=== PATIENT | female | born 1995 | race Caucasian/White ===

== ENCOUNTER 2017-09-28 16:36 | Emergency (ER) | payer BC ==
--- NOTE | 2017-09-28 17:49 | EDM.PDOC ---
ED HPI GENERAL MEDICAL PROBLEM - General Chief Complaint: Syncope Stated Complaint: PASSING OUT Time Seen by Provider: 09/28/17 17:08 Source of Information: Reports: Patient History Limitations: Reports: No Limitations - History of Present Illness INITIAL COMMENTS - FREE TEXT/NARRATIVE: 22-year-old female presents for evaluation and treatment following a near syncopal episode. 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 She was working out tonight. Was doing a strenuous workout. She states that she became lightheaded and noticed that her vision was darkening. She states that she felt like she was going to pass out. She sat down and drank some water and her symptoms resolved. Reportedly this is in the third episode of syncope or near syncope within the last few months. Patient was first seen in June by family medicine following a syncopal event. During that time she was working outside. She had labs including a TSH, d-dimer, ESR, CBC and CMP. No abnormalities were identified. She was not orthostatic. She had a normal EKG and Holter monitor. Patient reports last week she had a second syncopal episode. During this event she was in the shower. She was seen by family medicine again. CBC and CMP were unremarkable. She was scheduled with cardiology. Currently has a cardiology appointment in October. Patient reports she currently feels cold, weak and fatigued. She denies any current chest pain, lightheadedness or dizziness. She denies any polyuria or polydipsia. Reports that she has had chest pains "now and then". Describes it as a stabbing pain lasting maybe 5 minutes. No nausea or vomiting associated with these chest pains. Reports some shortness of breath with the chest pains but none currently. Additionally, she denies any unintentional weight loss or weight gain. States she has been more fatigued than normal. Reports that she just finished her menstrual cycle. She is not currently on any medications. Was on oral contraceptive pills but stopped these in May. She does use an inhaler for exercise-induced asthma but states she hardly ever uses this. - Related Data Allergies Allergy/AdvReac Type Severity Reaction Status Date / Time Penicillins Allergy Rash Verified 09/28/17 16:59 Home Meds: Home Meds . [No Known Home Meds] 09/28/17 [History] Past Medical History Cardiovascular History: Reports: Syncope - Past Surgical History Musculoskeletal Surgical History: Reports: Arthroscopic Knee, Other (See Below) Social & Family History - Tobacco Use Second Hand Smoke Exposure: No ED ROS GENERAL - Review of Systems Review Of Systems: See Below Constitutional: Reports: Weakness, Fatigue. Denies: Fever, Weight Loss, Weight Gain Cardiovascular: Reports: Chest Pain ("now and then") Endocrine: Reports: Fatigue. Denies: Polydypsia, Polyuria GI/Abdominal: Denies: Abdominal Pain, Vomiting : Reports: No Symptoms Neurological: Reports: Syncope (reports a near syncopal episode tonight; 2 syncopal episodes within the last few months). Denies: Headache - Physical Exam Exam: See Below Exam Limited By: No Limitations General Appearance: Alert, WD/WN, No Apparent Distress Eye Exam: Bilateral Eye: PERRL Ears: Normal External Exam, Normal Canal, Hearing Grossly Normal, Normal TMs Nose: Normal Inspection Throat/Mouth: Normal Inspection, Normal Lips, Normal Voice, No Airway Compromise Head Exam: Atraumatic, Normocephalic Neck: Normal Inspection, Non-Tender, Full Range of Motion Respiratory/Chest: No Respiratory Distress, Lungs Clear Cardiovascular: Normal Peripheral Pulses, Regular Rate, Rhythm, No Murmur GI/Abdominal: Soft, Non-Tender Neuro Exam (Abbreviated): Alert, Oriented, Normal Cognition Psychiatric: Normal Affect, Normal Mood Skin Exam: Warm, Dry, Normal Color Course - Vital Signs Last Recorded V/S: Last Vital Signs Temp 36.8 C 09/28/17 16:52 Pulse 78 09/28/17 16:52 Resp 20 09/28/17 16:52 BP 111/68 09/28/17 16:52 Pulse Ox 100 09/28/17 16:52 Orthostatic Blood Pressure [ 107/73 Standing] Orthostatic Blood Pressure [ 100/65 Sitting] Orthostatic Blood Pressure [ 108/66 Supine] - Orders/Labs/Meds Orders: Active Orders 24 hr Category Date Time Status Orthostatic Vital Signs [RC] ASDIRECTED Care 09/28/17 17:31 Active Chest 2V [CR] Stat Exams 09/28/17 17:32 Ordered Labs: Laboratory Tests 09/28/17 09/28/17 09/28/17 Range/Units 17:44 17:45 17:45 WBC 14.57 H (3.98-10.04) K/mm3 RBC 4.35 (3.98-5.22) M/mm3 Hgb 13.1 (11.2-15.7) gm/L Hct 38.9 (34.1-44.9) % MCV 89.4 (79.4-94.8) fl MCH 30.1 (25.6-32.2) pg MCHC 33.7 (32.2-35.5) g/dl RDW Std Deviation 41.1 (36.4-46.3) fL Plt Count 254 (182-369) K/mm3 MPV 10.4 (9.4-12.3) fl Neutrophils % (Manual) 77 H (40-60) % Band Neutrophils % 0 (0-10) % Lymphocytes % (Manual) 20 (20-40) % Atypical Lymphs % 0 % Monocytes % (Manual) 3 (2-10) % Eosinophils % (Manual) 0 L (0.7-5.8) % Basophils % (Manual) 0 L (0.1-1.2) Platelet Estimate Adequate RBC Morph Comment Normal Sodium 145 (136-145) mEq/L Potassium 4.3 (3.5-5.1) mEq/L Chloride 106 (98-107) mEq/L Carbon Dioxide 26 (21-32) mEq/L Anion Gap 17.3 H (5-15) BUN 18 (7-18) mg/dL Creatinine 1.0 (0.55-1.02) mg/dL Est Cr Clr Drug Dosing 77.49 mL/min Estimated GFR (MDRD) > 60 (>60) mL/min BUN/Creatinine Ratio 18.0 (14-18) Glucose 102 (74-106) mg/dL Calcium 9.2 (8.5-10.1) mg/dL Total Bilirubin 0.3 (0.2-1.0) mg/dL AST 22 (15-37) U/L ALT 25 (14-59) U/L Alkaline Phosphatase 64 (46-116) U/L Total Protein 7.3 (6.4-8.2) g/dl Albumin 4.1 (3.4-5.0) g/dl Globulin 3.2 gm/dL Albumin/Globulin Ratio 1.3 (1-2) HCG, Qual (NEGATIVE) Urine Color Yellow (Yellow) Urine Appearance Clear (Clear) Urine pH 6.0 (5.0-8.0) Ur Specific [place] > or = 1.030 (1.005-1.030) Urine Protein Trace H (Negative) Urine Glucose (UA) Negative (Negative) Urine Ketones Negative (Negative) Urine Occult Blood 2+ H (Negative) Urine Nitrite Negative (Negative) Urine Bilirubin Negative (Negative) Urine Urobilinogen 0.2 (0.2-1.0) Ur Leukocyte Esterase Negative (Negative) 09/28/17 Range/Units 17:45 WBC (3.98-10.04) K/mm3 RBC (3.98-5.22) M/mm3 Hgb (11.2-15.7) gm/L Hct (34.1-44.9) % MCV (79.4-94.8) fl MCH (25.6-32.2) pg MCHC (32.2-35.5) g/dl RDW Std Deviation (36.4-46.3) fL Plt Count (182-369) K/mm3 MPV (9.4-12.3) fl Neutrophils % (Manual) (40-60) % Band Neutrophils % (0-10) % Lymphocytes % (Manual) (20-40) % Atypical Lymphs % % Monocytes % (Manual) (2-10) % Eosinophils % (Manual) (0.7-5.8) % Basophils % (Manual) (0.1-1.2) Platelet Estimate RBC Morph Comment Sodium (136-145) mEq/L Potassium (3.5-5.1) mEq/L Chloride (98-107) mEq/L Carbon Dioxide (21-32) mEq/L Anion Gap (5-15) BUN (7-18) mg/dL Creatinine (0.55-1.02) mg/dL Est Cr Clr Drug Dosing mL/min Estimated GFR (MDRD) (>60) mL/min BUN/Creatinine Ratio (14-18) Glucose (74-106) mg/dL Calcium (8.5-10.1) mg/dL Total Bilirubin (0.2-1.0) mg/dL AST (15-37) U/L ALT (14-59) U/L Alkaline Phosphatase (46-116) U/L Total Protein (6.4-8.2) g/dl Albumin (3.4-5.0) g/dl Globulin gm/dL Albumin/Globulin Ratio (1-2) HCG, Qual Negative (NEGATIVE) Urine Color (Yellow) Urine Appearance (Clear) Urine pH (5.0-8.0) Ur Specific [place] (1.005-1.030) Urine Protein (Negative) Urine Glucose (UA) (Negative) Urine Ketones (Negative) Urine Occult Blood (Negative) Urine Nitrite (Negative) Urine Bilirubin (Negative) Urine Urobilinogen (0.2-1.0) Ur Leukocyte Esterase (Negative) - Radiology Interpretation Free Text/Narrative:: 2 view chest xray shows no acute intrathoracic process. No cardiomegaly. - Re-Assessments/Exams Free Text/Narrative Re-Assessment/Exam: 09/28/17 19:06 I reviewed the chest x-ray and lab results with the patient. I placed an outpatient order for her to have an echocardiogram. I will have her call tomorrow to get this scheduled. Follow-up with Dr. Cadet for results. Follow-up with cardiology as planned. Return to the ER if symptoms change or worsen. Departure - Departure Time of Disposition: 19:06 Disposition: Home, Self-Care 01 Condition: Good Clinical Impression: Syncope - Discharge Information Instructions: Syncope, [id number] Referrals: Lynda Cadet MD [Primary Care Provider] - Forms: ED Department Discharge Additional Instructions: Call tomorrow to schedule your echocardiogram. Please call [phone] if they do not contact you to schedule this. Ask for the radiology department. Follow-up with Dr. Cadet 2 to 3 days after your echocardiogram for results. Follow-up with cardiology this October as planned. make sure you are drinking plenty of fluids. Drink at least half your body weight in ounces every day. Make sure you are drink plenty of fluids before any physical activity. If you become lightheaded, dizzy, etc. stop what you are doing, sit down and drink fluids. Rest. Recommended reduced activity until at least after your echocardiogram. Please return to the ER if your symptoms change or worsen. - My Orders Last 24 Hours: My Active Orders 09/28/17 17:31 Orthostatic Vital Signs [RC] ASDIRECTED 09/28/17 17:32 Chest 2V [CR] Stat - Assessment/Plan Last 24 Hours: My Active Orders 09/28/17 17:31 Orthostatic Vital Signs [RC] ASDIRECTED 09/28/17 17:32 Chest 2V [CR] Stat
--- NOTE | 2017-09-29 09:46 | CR ---
Chest: Two views of the chest were obtained. Comparison: No prior chest x-ray. Heart size and mediastinum are within normal limits. Lungs are clear. Bony structures appear within normal limits for the patient's age. Impression: 1. Nothing acute is identified on two-view chest x-ray. Diagnostic code #1
== END 2017-09-28 19:21 | disposition home or self-care (01) ==
LOC: JD.ED 16:36
DX: R55 Syncope and collapse (principal); Z88.0 Allergy status to penicillin
CPT/HCPCS: 36415; 71020; 71020-26; 80053; 81003; 84703; 85025; 99284

== ENCOUNTER 2018-07-29 07:03 | Emergency (ER) | payer BC ==
[2018-07-29] MEDS ORDERED: Sodium Chloride 0.9% 10 ML Syringe FLUSH PRN (07:33)
[2018-07-29] MEDS ORDERED: Ondansetron 4 MG/2 ML SDV IVPUSH ONE (07:33)
[2018-07-29] MEDS ORDERED: HYDROmorphone 1 MG/ML Syringe IVPUSH ONE (07:34)
[2018-07-29] MEDS ORDERED: Ketorolac 30 MG/ML SDV IVPUSH ONE (07:34)
--- NOTE | 2018-07-29 07:39 | EDM.PDOC ---
ED HPI GENERAL MEDICAL PROBLEM - General Chief Complaint: Abdominal Pain Stated Complaint: VOMITING/ABDOMINAL PAIN Time Seen by Provider: 07/29/18 07:30 Source of Information: Reports: Patient, Family History Limitations: Reports: No Limitations - History of Present Illness INITIAL COMMENTS - FREE TEXT/NARRATIVE: The patient presents with right lower back/flank pain that radiates to the right lower abdomen. She has nausea and vomiting. She has no diarrhea. She thought maybe she initially had a bladder infection. She has no hematuria. She has no dysuria. She has no fever, chills cough, chest pain or shortness of breath. She does have a history of kidney stones. This started at 5am this morning. Onset: Sudden Duration: Hour(s): (5am) Quality: Reports: Sharp Severity: Severe Improves with: Reports: None Worsens with: Reports: None Associated Symptoms: Reports: Nausea/Vomiting. Denies: Chest Pain, Cough, Fever /Chills, Headaches, Shortness of Breath Right Back Pain Score (Numeric/FACES): 10 - Related Data Allergies Allergy/AdvReac Type Severity Reaction Status Date / Time Penicillins Allergy Rash Verified 07/29/18 07:19 Home Meds: Home Meds Hydrocodone/Acetaminophen [Hydrocodon-Acetaminophen 5-325] 1 - 2 each PO Q6HR PRN #20 tablet 07/29/18 [Rx] Sulfamethoxazole/Trimethoprim [Bactrim Ds Tablet] 1 each PO BID #10 tablet 07/29 [Rx] Tamsulosin HCl [Flomax] 0.4 mg PO DAILY #7 cap.er.24h 07/29/18 [Rx] Past Medical History Cardiovascular History: Reports: Syncope - Past Surgical History Musculoskeletal Surgical History: Reports: Arthroscopic Knee, Other (See Below) Social & Family History - Tobacco Use Smoking Status *Q: Never Smoker - Caffeine Use Caffeine Use: Reports: None - Recreational Drug Use Recreational Drug Use: No ED ROS GENERAL - Review of Systems Review Of Systems: See Below Constitutional: Reports: No Symptoms HEENT: Reports: No Symptoms Respiratory: Reports: No Symptoms Cardiovascular: Reports: No Symptoms Endocrine: Reports: No Symptoms GI/Abdominal: Reports: Abdominal Pain, Nausea, Vomiting. Denies: Diarrhea : Reports: Flank Pain. Denies: Dysuria, Hematuria Musculoskeletal: Reports: No Symptoms Skin: Reports: No Symptoms ED EXAM, RENAL/ - Physical Exam Exam: See Below Exam Limited By: No Limitations General Appearance: Alert, Moderate Distress Ears: Normal External Exam Nose: Normal Inspection Head: Atraumatic, Normocephalic Neck: Normal Inspection Respiratory/Chest: No Respiratory Distress, Lungs Clear, Normal Breath Sounds Cardiovascular: Regular Rate, Rhythm, No Edema, No Murmur GI/Abdominal: Soft, Non-Tender, No Organomegaly, No Mass Back Exam: No: CVA Tenderness (R) Extremities: Normal Inspection Neurological: Alert, Oriented, No Motor/Sensory Deficits Course - Vital Signs Last Recorded V/S: Last Vital Signs Temp 99.3 F 07/29/18 07:15 Pulse 90 07/29/18 07:15 Resp 13 07/29/18 07:15 BP 101/86 07/29/18 07:15 Pulse Ox 100 07/29/18 07:15 - Orders/Labs/Meds Orders: Active Orders 24 hr Category Date Time Status Peripheral IV Care [RC] . DIRECTED Care 07/29/18 07:34 Active Sodium Chloride 0.9% [Normal Saline] 1,000 ml Med 07/29/18 07:45 Active IV ASDIRECTED Sodium Chloride 0.9% [Saline Flush] Med 07/29/18 07:33 Active 10 ml FLUSH ASDIRECTED PRN ED Antiemetic Medication Reflex [OM.PC] Stat Oth 07/29/18 07:33 Ordered Peripheral IV Insertion Adult [OM.PC] Stat Oth 07/29/18 07:33 Ordered Medication Orders Sodium Chloride (Normal Saline) 1,000 mls @ 125 mls/hr IV ASDIRECTED VANESA Last Admin: 07/29/18 07:41 Dose: 125 mls/hr Sodium Chloride (Saline Flush) 10 ml FLUSH ASDIRECTED PRN PRN Reason: Keep Vein Open Last Admin: 07/29/18 07:41 Dose: 10 ml Labs: Laboratory Tests 07/29/18 07/29/18 07/29/18 Range/Units 07:25 07:40 07:40 WBC (3.98-10.04) K/mm3 RBC (3.98-5.22) M/mm3 Hgb (11.2-15.7) gm/L Hct (34.1-44.9) % MCV (79.4-94.8) fl MCH (25.6-32.2) pg MCHC (32.2-35.5) g/dl RDW Std Deviation (36.4-46.3) fL Plt Count (182-369) K/mm3 MPV (9.4-12.3) fl Neut % (Auto) (34.0-71.1) % Lymph % (Auto) (19.3-51.7) % [place] % (Auto) (4.7-12.5) % Eos % (Auto) (0.7-5.8) Baso % (Auto) (0.1-1.2) % Neut # (Auto) (1.56-6.13) K/mm3 Lymph # (Auto) (1.18-3.74) K/mm3 [place] # (Auto) (0.24-0.36) K/mm3 Eos # (Auto) (0.04-0.36) K/mm3 Baso # (Auto) (0.01-0.08) K/mm3 Sodium 140 (136-145) mEq/L Potassium 3.4 L (3.5-5.1) mEq/L Chloride 107 (98-107) mEq/L Carbon Dioxide 21 (21-32) mEq/L Anion Gap 15.4 H (5-15) BUN 18 (7-18) mg/dL Creatinine 1.1 H (0.55-1.02) mg/dL Est Cr Clr Drug Dosing 69.86 mL/min Estimated GFR (MDRD) > 60 (>60) mL/min BUN/Creatinine Ratio 16.4 (14-18) Glucose 106 (74-106) mg/dL Calcium 8.9 (8.5-10.1) mg/dL Total Bilirubin 0.5 (0.2-1.0) mg/dL AST 31 (15-37) U/L ALT 26 (14-59) U/L Alkaline Phosphatase 63 (46-116) U/L Total Protein 7.3 (6.4-8.2) g/dl Albumin 4.0 (3.4-5.0) g/dl Globulin 3.3 gm/dL Albumin/Globulin Ratio 1.2 (1-2) Lipase 139 (73-393) U/L HCG, Qual Negative (NEGATIVE) Urine Color Yellow (Yellow) Urine Appearance Clear (Clear) Urine pH 6.0 (5.0-8.0) Ur Specific [place] 1.025 (1.005-1.030) Urine Protein Negative (Negative) Urine Glucose (UA) Negative (Negative) Urine Ketones Negative (Negative) Urine Occult Blood 2+ H (Negative) Urine Nitrite Negative (Negative) Urine Bilirubin Negative (Negative) Urine Urobilinogen 0.2 (0.2-1.0) Ur Leukocyte Esterase 2+ H (Negative) Urine RBC 5-10 H (0-5) /hpf Urine WBC 10-20 H (0-5) /hpf Ur Epithelial Cells 0-5 (0-5) /hpf Urine Bacteria Many H (FEW) /hpf Urine Mucus Few (FEW) /hpf 07/29/18 Range/Units 07:55 WBC 7.35 (3.98-10.04) K/mm3 RBC 4.05 (3.98-5.22) M/mm3 Hgb 12.2 (11.2-15.7) gm/L Hct 36.6 (34.1-44.9) % MCV 90.4 (79.4-94.8) fl MCH 30.1 (25.6-32.2) pg MCHC 33.3 (32.2-35.5) g/dl RDW Std Deviation 41.5 (36.4-46.3) fL Plt Count 206 (182-369) K/mm3 MPV 9.9 (9.4-12.3) fl Neut % (Auto) 59.0 (34.0-71.1) % Lymph % (Auto) 32.5 (19.3-51.7) % [place] % (Auto) 7.2 (4.7-12.5) % Eos % (Auto) 0.8 (0.7-5.8) Baso % (Auto) 0.4 (0.1-1.2) % Neut # (Auto) 4.33 (1.56-6.13) K/mm3 Lymph # (Auto) 2.39 (1.18-3.74) K/mm3 [place] # (Auto) 0.53 H (0.24-0.36) K/mm3 Eos # (Auto) 0.06 (0.04-0.36) K/mm3 Baso # (Auto) 0.03 (0.01-0.08) K/mm3 Sodium (136-145) mEq/L Potassium (3.5-5.1) mEq/L Chloride (98-107) mEq/L Carbon Dioxide (21-32) mEq/L Anion Gap (5-15) BUN (7-18) mg/dL Creatinine (0.55-1.02) mg/dL Est Cr Clr Drug Dosing mL/min Estimated GFR (MDRD) (>60) mL/min BUN/Creatinine Ratio (14-18) Glucose (74-106) mg/dL Calcium (8.5-10.1) mg/dL Total Bilirubin (0.2-1.0) mg/dL AST (15-37) U/L ALT (14-59) U/L Alkaline Phosphatase (46-116) U/L Total Protein (6.4-8.2) g/dl Albumin (3.4-5.0) g/dl Globulin gm/dL Albumin/Globulin Ratio (1-2) Lipase (73-393) U/L HCG, Qual (NEGATIVE) Urine Color (Yellow) Urine Appearance (Clear) Urine pH (5.0-8.0) Ur Specific [place] (1.005-1.030) Urine Protein (Negative) Urine Glucose (UA) (Negative) Urine Ketones (Negative) Urine Occult Blood (Negative) Urine Nitrite (Negative) Urine Bilirubin (Negative) Urine Urobilinogen (0.2-1.0) Ur Leukocyte Esterase (Negative) Urine RBC (0-5) /hpf Urine WBC (0-5) /hpf Ur Epithelial Cells (0-5) /hpf Urine Bacteria (FEW) /hpf Urine Mucus (FEW) /hpf Meds: Medications Generic Name Dose Route Start Last Admin Trade Name Freq PRN Reason Stop Dose Admin Sodium Chloride 1,000 mls @ 125 mls/hr 07/29/18 07:45 07/29/18 07:41 Normal Saline IV 125 mls/hr ASDIRECTED VANESA Administration Sodium Chloride 10 ml 07/29/18 07:33 07/29/18 07:41 Saline Flush FLUSH 10 ml ASDIRECTED PRN Administration Keep Vein Open Discontinued Medications Generic Name Dose Route Start Last Admin Trade Name Freq PRN Reason Stop Dose Admin Hydromorphone HCl 1 mg 07/29/18 07:34 07/29/18 07:41 Dilaudid IVPUSH 07/29/18 07:35 1 mg ONETIME ONE Administration Hydromorphone HCl 0.5 mg 07/29/18 10:31 Dilaudid IVPUSH 07/29/18 10:32 ONETIME ONE Ketorolac Tromethamine 30 mg 07/29/18 07:34 07/29/18 07:40 Toradol IVPUSH 07/29/18 07:35 30 mg ONETIME ONE Administration Ondansetron HCl 4 mg 07/29/18 07:33 07/29/18 07:41 Zofran IVPUSH 07/29/18 07:34 4 mg ONETIME ONE Administration - Re-Assessments/Exams Free Text/Narrative Re-Assessment/Exam: 07/29/18 07:38 I ordered an IV NS at 125mL/hr, zofran 4mg IV, toradol 30mg IV, dilaudid 1mg IV , UA, labs and a CT of her abdomen and pelvis without contrast to look for a kidney stone. 07/29/18 10:33 Her CBC looks good. Her K was a little low at 3.4. Her anion gap was elevated at 15.4. Her creatinine was slightly elevated at 1.1. Her lipase was negative. Her HCG was negative. Her UA shows a UTI and RBC's. I will need to treat her for that UTI. Her CT shows a 4mm obstructing stone within the distal right ureter at the UVJ. Multiple small nonobstructing calculi within both kidneys. 3.9 cm cyst within the right ovary. Small amount of fluid within the cul-de-sac which is believed to be physiologic. She feels better but her pain is coming back so I ordered more dilaudid 0.5mg IV before she goes. Departure - Departure Time of Disposition: 10:40 Disposition: Home, Self-Care 01 Condition: Good Clinical Impression: Kidney stone on right side, Ureteral calculi, Ureteral colic Ovarian cyst Qualifiers: Laterality: right Qualified Code(s): N83.201 - Unspecified ovarian cyst, right side UTI (urinary tract infection) Qualifiers: Urinary tract infection type: site unspecified Hematuria presence: with hematuria Qualified Code(s): N39.0 - Urinary tract infection, site not specified ; R31.9 - Hematuria, unspecified - Discharge Information *PRESCRIPTION DRUG MONITORING PROGRAM REVIEWED*: No *COPY OF PRESCRIPTION DRUG MONITORING REPORT IN PATIENT CARLA: No Prescriptions: Hydrocodone/Acetaminophen [Hydrocodon-Acetaminophen 5-325] 1 - 2 each PO Q6HR PRN #20 tablet PRN Reason: Pain Sulfamethoxazole/Trimethoprim [Bactrim Ds Tablet] 1 each PO BID #10 tablet Tamsulosin HCl [Flomax] 0.4 mg PO DAILY #7 cap.er.24h Referrals: Mckinley Lorenzo MD [Physician] - 1 Week Lynda Cadet MD [Primary Care Provider] - 1 Week Forms: ED Department Discharge Additional Instructions: Drink plenty of fluid. Take the macrobid 2 times per day for 5 days. Take flomax daily for a week. Take hydrocodone 5mg/325mg 1 to 2 pills every 6 hours as needed for pain. Follow up with Dr Cadet and Dr Lorenzo or one of his partners. He is the urologist in [place]. Please return if you are worse. - My Orders Last 24 Hours: My Active Orders 07/29/18 07:33 Sodium Chloride 0.9% [Saline Flush] 10 ml FLUSH ASDIRECTED PRN ED Antiemetic Medication Reflex [OM.PC] Stat Peripheral IV Insertion Adult [OM.PC] Stat 07/29/18 07:34 Peripheral IV Care [RC] . DIRECTED 07/29/18 07:45 Sodium Chloride 0.9% [Normal Saline] 1,000 ml IV ASDIRECTED - Assessment/Plan Last 24 Hours: My Active Orders 07/29/18 07:33 Sodium Chloride 0.9% [Saline Flush] 10 ml FLUSH ASDIRECTED PRN ED Antiemetic Medication Reflex [OM.PC] Stat Peripheral IV Insertion Adult [OM.PC] Stat 07/29/18 07:34 Peripheral IV Care [RC] . DIRECTED 07/29/18 07:45 Sodium Chloride 0.9% [Normal Saline] 1,000 ml IV ASDIRECTED
[2018-07-29] MEDS ORDERED: Sodium Chloride 0.9% 1,000 ML IV SCH (07:45)
--- NOTE | 2018-07-29 10:08 | CT ---
CT abdomen and pelvis Technique: Multiple axial sections were obtained from above the dome of the diaphragm inferiorly to the pubic symphysis. Intravenous and oral contrast was not utilized. Study has been performed as a ureteral stone protocol. Comparison: Prior noncontrast CT study of 08/24/14. Findings: Multiple small nonobstructing calculi are seen within both kidneys. These calculi measure less than 5 mm. Right ureter is prominent in size. This finding is due to an obstructing stone located at the UVJ measuring 4 mm. No other abnormal calcifications are seen along the course of the ureters. Visualized lung bases are clear. Noncontrast appearance of the liver and spleen appears within normal limits. Adrenal glands show no nodule. No discrete abnormality is appreciated within the pancreas. Gallbladder contains no calcified gallstones. Aorta shows no aneurysmal dilatation. No retroperitoneal adenopathy or mesenteric abnormalities are seen. No pelvic mass is identified. Cyst is identified within the right ovary measuring about 3.9 cm in size. Small amount of fluid is seen within the cul-de-sac which is felt to be physiologic. Appendix is seen and is normal in size. Bone window settings were reviewed which shows an incidental limbus type vertebra involving the superior and anterior L5 vertebral body. Impression: 1. 4 mm obstructing stone within the distal right ureter at the UVJ. 2. Multiple small nonobstructing calculi within both kidneys. 3. 3.9 cm cyst within the right ovary. Small amount of fluid within the cul-de-sac which is believed to be physiologic. Diagnostic code #3
[2018-07-29] MEDS ORDERED: HYDROmorphone 0.5 MG/0.5 ML SYRINGE IVPUSH ONE (10:31)
== END 2018-07-29 10:47 | disposition home or self-care (01) ==
LOC: JD.ED 07:03
DX: N20.2 Calculus of kidney with calculus of ureter (principal); N83.201 Unspecified ovarian cyst, right side; N39.0 Urinary tract infection, site not specified; R31.9 Hematuria, unspecified; Z88.0 Allergy status to penicillin; Z79.899 Other long term (current) drug therapy
CPT/HCPCS: 36415; 74176; 80053; 81001; 83690; 84703; 85025; 96361; 96374; 96375; 96376; 99284; J1170; J1885; J2405; J7040; J7050

== ENCOUNTER 2022-08-29 09:20 | Emergency (ER) | payer BC ==
[2022-08-29] MEDS ORDERED: Sodium Chloride 0.9% 10 ML Syringe FLUSH PRN (10:24)
[2022-08-29 10:42] LABS: ESTIMATED GFR 91 mL/min (>60)
[2022-08-29] MEDS ORDERED: Gadobenate Dimeglumine 529 MG/ML 15 ML SDV IVPUSH ONE (10:53)
[2022-08-29] MEDS ORDERED: Sodium Chloride 0.9% 10 ML Syringe FLUSH SCH (11:00)
== END 2022-08-29 12:15 | disposition home or self-care (01) ==
LOC: JD.ED 09:20
DX: H53.9 Unspecified visual disturbance (principal); Z88.0 Allergy status to penicillin
CPT/HCPCS: 36415; 70450; 70553; 80053; 83735; 85025; 85652; 86140; 99284; A9577; J3490

== ENCOUNTER 2022-10-13 08:59 | Emergency (ER) | payer BC | END 2022-10-13 10:00 | disposition left against medical advice (07) | LOC: JD.ED 08:59 | DX: Z53.21 Procedure and treatment not carried out due to patient leaving prior to being seen by health care provider (principal) ==

== ENCOUNTER 2025-02-26 14:47 | Emergency (ER) | payer BC ==
[2025-02-26] MEDS: Iopamidol 612 MG/ML 100 ML Bottle IVPUSH ONE (17:23)
[2025-02-26] MEDS: Sodium Chloride 0.9% 10 ML Syringe FLUSH ONE (17:23)
[2025-02-26] MEDS: Sodium Chloride 0.9% 100 ML IV SCH (17:23)
== END 2025-02-26 18:00 | disposition home or self-care (01) ==
LOC: JD.ED 14:47
DX: H57.02 Anisocoria (principal); Z79.899 Other long term (current) drug therapy; Z88.0 Allergy status to penicillin; Z88.1 Allergy status to other antibiotic agents
CPT/HCPCS: 70470; 99283; Q9967; 99282